=== PATIENT | female | born 1955 | race Caucasian/White ===

== ENCOUNTER → 2023-11-23 15:10 | Outpatient (REF) | payer MEDICARE, SELFPAY | LOC: CLAB 15:10 | PROVIDERS: ATTENDING PHYSICIAN Urology | DX: R31.0 Gross hematuria (principal) | CPT/HCPCS: 88112 ==

== ENCOUNTER 2023-12-01 06:07 | Day surgery (SDC) | payer MEDICARE, SELFPAY ==
[2023-11-27 07:23] VITALS: BMI 26.7
[2023-11-27 08:59] LABS: Hemoglobin 14.3 g/dL (12.0-16.0); Mean Corpuscular Hgb 29.8 pg (27.0-31.0); Mean Corpuscular Volume 87.5 fL (81.0-99.0); Mean Platelet Volume 10.5 fL (7.4-10.4); Platelet Count 286 10^3/uL (130-400); Red Cell Dist. Width 13.5 % (11.5-14.5); White Blood Cell Count 6.3 10^3/uL (4.8-10.8)
[2023-11-27 09:24] LABS: Blood Urea Nitrogen 17 mg/dl (7-17); Calcium 9.4 mg/dl (8.4-10.2); Carbon Dioxide 28 mmol/L (22-30); Chloride 100 mmol/L (98-107); Estimated Creatinine Clearance 62 ml/min; Glucose 91 mg/dl (70-99); Potassium 4.9 mmol/L (3.5-5.1); Sodium 141 mmol/L (135-145); eGFR > 60.00
[2023-12-01] VITALS (14 sets, daily range): BP systolic 129–169; BP diastolic 64–92; BMI 26.7
[2023-12-01] MEDS: CYSVIEW KIT 100 MG INTRAVES (07:06)
[2023-12-01] MEDS: NORMOSOL-R/PLASMALYTE-A 1000 IV (07:22)
[2023-12-01] MEDS: SYRINGE NON-PUMP 50 MG IRRIG ×2 (09:23→09:24)
[2023-12-01] MEDS: SYRINGE NON-PUMP 50 ML IRRIG ×2 (09:23→09:24)
[2023-12-01] MEDS: Pyridium 200 MG PO (09:58)
[2023-12-01] MEDS: TYLENOL 650 MG PO (11:22)
== END 2023-12-01 11:30 | disposition home or self-care (01) ==
LOC: SDS 06:07
PROVIDERS: ATTENDING PHYSICIAN Urology; FAMILY PHYSICIAN Family Medicine
DX: C67.3 Malignant neoplasm of anterior wall of bladder (principal); C67.5 Malignant neoplasm of bladder neck
CPT/HCPCS: 52240; C9738; 88307; 36415; 80048; 85027; 93005; A9589; J9201

== ENCOUNTER 2024-01-26 06:18 | Day surgery (SDC) | payer MEDICARE, SELFPAY ==
[2024-01-26] VITALS (8 sets, daily range): BP systolic 116–156; BP diastolic 60–91; BMI 28.0
[2024-01-26] MEDS: CYSVIEW KIT 100 MG INTRAVES (06:59)
[2024-01-26] MEDS: Pyridium 200 MG PO (08:57)
[2024-01-26] MEDS: TORADOL 15 MG IV (08:57)
== END 2024-01-26 10:11 | disposition home or self-care (01) ==
LOC: SDS 06:18
PROVIDERS: ATTENDING PHYSICIAN Urology
DX: N30.80 Other cystitis without hematuria (principal); C67.9 Malignant neoplasm of bladder, unspecified
CPT/HCPCS: 52235; 88307; 88342; A9589

== ENCOUNTER → 2025-02-10 13:49 | Outpatient (REF) | payer MEDICARE, SELFPAY | LOC: RAD 13:49 | PROVIDERS: ATTENDING PHYSICIAN Urology; FAMILY PHYSICIAN Family Medicine | DX: C67.4 Malignant neoplasm of posterior wall of bladder (principal) | CPT/HCPCS: 74178; Q9967 ==